=== PATIENT | female | born 1940 | race Caucasian/White ===

== ENCOUNTER → 2016-09-09 | Outpatient (REF) ==
[2016-09-09 16:31] LABS: THYROID STIMULATING HORMONE 2.83 uIU/mL (0.465-4.680)
== END ==
LOC: ZLAB.WCH 14:54
PROVIDERS: Family Medicine
DX: Z01.89 Encounter for other specified special examinations (principal)

== ENCOUNTER → 2017-09-03 | Outpatient (REF) ==
[2017-09-03 19:57] LABS: THYROID STIMULATING HORMONE 3.58 uIU/mL (0.465-4.680)
== END ==
LOC: ZLAB.WCH 18:48
PROVIDERS: Family Medicine
DX: Z01.89 Encounter for other specified special examinations (principal)

== ENCOUNTER → 2018-09-07 | Outpatient (REF) ==
[2018-09-07 16:37] LABS: THYROID STIMULATING HORMONE 2.08 uIU/mL (0.465-4.680)
== END ==
LOC: ZLAB.WCH 15:53
PROVIDERS: Family Medicine
DX: Z01.89 Encounter for other specified special examinations (principal)